=== PATIENT | female | born 1985 | race Caucasian/White ===

== ENCOUNTER → 2016-06-18 | Outpatient (CLI) | payer MEDICAID ==
[~2016-06-18] MED LIST: ACET65TA OR; AFRI0.65; AUGM875T27 PO; CEFT2ADD IV; IBUP600T OR; OCEAN NASAL SPRAY; PENI50TA PO; PENICILLIN PO; PERC5TAB PO; PERC5TAB8 OR; PERCOCET PO; PRED20TAB PO; PRENATAL VITAMIN; REGL10TA6 PO; SALINE FLUSHES IVFLUSH; TYLE325T5 PO; ZANT150T OR; ZANT150T PO; ZOVI5OIN EX; heparin IVFLUSH; no home meds
--- NOTE | 2016-06-18 10:51 | REP ---
Clinical: Abdominal pain related to section scar. Technique: Real time oneil scale and color evaluation using curved array transducer. Findings: Ultrasound examination over the surgical scar related to prior sections demonstrates an elongated avascular hypoechoic area deep to the subcutaneous tissues and possibility intramuscular which measures 4.8 x 1.1 x 1.5 cm. Impression: Avascular hypoechoic area deep to the subcutaneous tissues may represent granulation tissue/surgical scarring. If the patient remains symptomatic consider contrast enhanced CT of the abdomen and pelvis for more detailed evaluation. Signed by Allan Alcantara MD 06/18/2016 10:42 A
== END ==
LOC: M RAD 10:07
PROVIDERS: ATTEND Family Medicine
DX: R10.9 Unspecified abdominal pain (principal); R93.5 Abnormal findings on diagnostic imaging of other abdominal regions, including retroperitoneum

== ENCOUNTER 2017-10-03 14:19 | Emergency (ER) | payer OTHER, MEDICAID ==
[2017-10-03] MEDS: NS 1,000 ML IV (16:00)
[2017-10-03 16:24] LABS: BASO # 0.1 10^3/uL (0.0-0.2); BASO % 0.5 % (0.0-1.0); EOS # 0.3 10^3/uL (0.0-0.50); EOS % 2.5 % (0.0-3.0); HEMATOCRIT 37.6 % (36.0-47.0); HEMOGLOBIN 12.8 g/dl (12.0-15.5); IMMATURE GRANULOCYTE % 0.3 % (0-3.0); LYMPH # 3.9 10^3/uL (1.5-4.5); LYMPH % 30.5 % (24.0-44.0); MEAN CORPUSCULAR HEMOGLOBIN 30.7 pg (27.0-33.0); MEAN CORPUSCULAR VOLUME 90.2 fl (80.0-96.0); MONO # 1.6 10^3/uL (0.0-0.8); NEUTROPHILS % 54.2 % (36.0-66.0); RED BLOOD COUNT 4.17 10^6/uL (4.00-5.40); RED CELL DISTRIBUTION WIDTH 12.9 % (11.5-14.5); WHITE BLOOD COUNT 12.9 10^3/uL (4.0-10.0)
[2017-10-03] MEDS: fentaNYL 100 MCG/2 ML INJECTION (J3010) IV ×2 (16:26→17:37)
[2017-10-03 16:29] LABS: KETONE, URINE AUTO RFX NEGATIVE (NEGATIVE); LEUKOCYTE ESTERASE UR AUTO RFX TRACE (NEGATIVE); MUCUS, URINE RFX LARGE (NEGATIVE); NITRITE, URINE AUTO RFX NEGATIVE (NEGATIVE); RBC, URINE AUTO RFX 80 /HPF (0-3); SPECIFIC GRAVITY UR AUTO RFX 1.014 (1.002-1.035); SQUAM EPITHELIAL CELL UR AURFX 11 /HPF (0-6); WBC, URINE AUTO RFX 20 /HPF (0-3)
[2017-10-03 16:35] LABS: IMMATURE PLATELET FRACTION % 19.1 % (0.0-9.6); INR 0.96; PLATELET COUNT, AUTOMATED 64 10^3/uL (150-450); PROTHROMBIN TIME 12.9 SECONDS (12.4-14.5)
[2017-10-03 16:36] LABS: PARTIAL THROMBOPLASTIN TIME 27.8 SECONDS (26.8-37.9)
[2017-10-03 16:51] LABS: CONTROL LINE HCG INT CTR LINE PRESENT; HCG, SERUM QUALITATIVE NEGATIVE (NEGATIVE)
[2017-10-03 17:02] LABS: ANION GAP 9 MEQ/L (8-16); BLOOD UREA NITROGEN 8 MG/DL (7-18); CALCIUM LEVEL 8.4 MG/DL (8.5-10.1); CARBON DIOXIDE LEVEL 25 MEQ/L (21-32); CHLORIDE LEVEL 109 MEQ/L (98-107); CREATININE FOR GFR 0.75 MG/DL (0.55-1.30); GLOMERULAR FILTRATION RATE > 60.0 (>60); GLUCOSE, FASTING 93 MG/DL (70-100); POTASSIUM SERUM 3.4 MEQ/L (3.5-5.1); SODIUM LEVEL 143 MEQ/L (136-145)
== END 2017-10-03 18:16 | disposition home or self-care (01) ==
LOC: M ED 14:19
DX: K43.9 Ventral hernia without obstruction or gangrene (principal); N93.8 Other specified abnormal uterine and vaginal bleeding; N30.01 Acute cystitis with hematuria; D69.3 Immune thrombocytopenic purpura; K21.9 Gastro-esophageal reflux disease without esophagitis; R51 Headache; Z88.5 Allergy status to narcotic agent; Z88.1 Allergy status to other antibiotic agents
CPT/HCPCS: J3010

== ENCOUNTER → 2018-02-17 | Outpatient (REF) | payer OTHER ==
[2018-02-17 12:45] LABS: BASO # 0.1 10^3/uL (0.0-0.2); BASO % 0.6 % (0.0-1.0); EOS # 0.4 10^3/uL (0.0-0.50); EOS % 3.6 % (0.0-3.0); HEMATOCRIT 41.9 % (36.0-47.0); HEMOGLOBIN 13.9 g/dl (12.0-15.5); IMMATURE GRANULOCYTE % 0.6 % (0-3.0); LYMPH # 4.2 10^3/uL (1.5-4.5); LYMPH % 35.4 % (24.0-44.0); MEAN CORPUSCULAR HEMOGLOBIN 30.6 pg (27.0-33.0); MEAN CORPUSCULAR HGB CONC 33.2 g/dl (32.0-36.5); MEAN CORPUSCULAR VOLUME 92.3 fl (80.0-96.0); MONO # 1.3 10^3/uL (0.0-0.8); MONO % 11.3 % (0.0-5.0); NEUTROPHILS # 5.7 10^3/uL (1.8-7.7); NEUTROPHILS % 48.5 % (36.0-66.0); PLATELET COUNT, AUTOMATED 126 10^3/uL (150-450); RED BLOOD COUNT 4.54 10^6/uL (4.00-5.40); RED CELL DISTRIBUTION WIDTH 12.8 % (11.5-14.5); WHITE BLOOD COUNT 11.7 10^3/uL (4.0-10.0)
[2018-02-17 16:09] LABS: ALBUMIN 3.8 GM/DL (3.2-5.2); ALBUMIN/GLOBULIN RATIO 1.12 (1.00-1.93); ALKALINE PHOSPHATASE 49 U/L (45-117); ALT/SGPT 21 U/L (12-78); ANION GAP 9 MEQ/L (8-16); AST/SGOT 18 U/L (7-37); BILIRUBIN,TOTAL 0.4 MG/DL (0.2-1.0); BLOOD UREA NITROGEN 10 MG/DL (7-18); CALCIUM LEVEL 8.5 MG/DL (8.5-10.1); CARBON DIOXIDE LEVEL 26 MEQ/L (21-32); CHLORIDE LEVEL 107 MEQ/L (98-107); CREATININE FOR GFR 0.79 MG/DL (0.55-1.30); FREE T4 0.89 NG/DL (0.76-1.46); GLOMERULAR FILTRATION RATE > 60.0 (>60); GLUCOSE, FASTING 85 MG/DL (70-100); POTASSIUM SERUM 3.9 MEQ/L (3.5-5.1); SODIUM LEVEL 142 MEQ/L (136-145); TOTAL PROTEIN 7.2 GM/DL (6.4-8.2)
== END ==
LOC: M SFHCADAM 10:46
DX: D69.3 Immune thrombocytopenic purpura (principal); R63.5 Abnormal weight gain

== ENCOUNTER 2018-05-23 12:31 | Observation (INO) | payer OTHER ==
[~2018-05-23] VITALS: Ht 175.3 cm; Wt 92.3 kg
[2018-05-23] VITALS (7 sets, daily range): BP systolic 115–143; BP diastolic 59–82
[~2018-05-23 12:31] MED LIST changes: +MACR100C43 PO; +OXYC1TAB23 PO; +PERC5TAB12 PO; +ZYRTTAB8 PO
[2018-05-23 13:16] LABS: HEMATOCRIT 44.9 % (36.0-47.0); HEMOGLOBIN 15.3 g/dl (12.0-15.5); MEAN CORPUSCULAR HGB CONC 34.1 g/dl (32.0-36.5); MEAN CORPUSCULAR VOLUME 90.9 fl (80.0-96.0); RED BLOOD COUNT 4.94 10^6/uL (4.00-5.40); WHITE BLOOD COUNT 13.1 10^3/uL (4.0-10.0)
[2018-05-23 13:29] LABS: INR 0.91; PARTIAL THROMBOPLASTIN TIME 29.6 SECONDS (25.4-37.6); PROTHROMBIN TIME 12.3 SECONDS (12.1-14.4)
[2018-05-23 13:38] LABS: ALBUMIN 4.2 GM/DL (3.2-5.2); ALT/SGPT 23 U/L (12-78); BILIRUBIN,DIRECT < 0.1 MG/DL (0.0-0.2); BILIRUBIN,TOTAL 0.4 MG/DL (0.2-1.0); BLOOD UREA NITROGEN 9 MG/DL (7-18); CARBON DIOXIDE LEVEL 26 MEQ/L (21-32); CHLORIDE LEVEL 106 MEQ/L (98-107); GLOMERULAR FILTRATION RATE > 60.0 (>60); GLUCOSE, FASTING 88 MG/DL (70-100); POTASSIUM SERUM 3.8 MEQ/L (3.5-5.1); SODIUM LEVEL 141 MEQ/L (136-145); TOTAL PROTEIN 8.1 GM/DL (6.4-8.2)
[2018-05-23 13:51] LABS: PLATELET COUNT, AUTOMATED 6 10^3/uL (150-450)
[2018-05-23] MEDS ORDERED: ACETAMINOPHEN TAB 650MG DOSE (2X325MG) PO ONE ×2 (16:15→17:45)
[2018-05-23] MEDS ORDERED: diphenhydrAMINE INJ 50MG/ML VIAL (J1200) IV ONE (16:15)
[2018-05-23] MEDS ORDERED: [UNRECOGNIZED DRUG - OTHER] IV SCH ×2 (16:30→20:00)
[2018-05-23] MEDS ORDERED: IMMUNE GLOBULIN IV SCH ×3 (16:30→20:00)
[2018-05-23] MEDS ORDERED: DILUENT IV SCH (17:00)
--- NOTE | 2018-05-23 17:16 | HPE ---
DATE OF ADMISSION: 05/23/2018 This is a 32-year-old female past medical history of idiopathic thrombocytopenic purpura (ITP) who presents to the emergency room due to abnormal laboratories found at Dr. Baldwin's office, her trust and estates attorney. When the patient came here, complete blood count (CBC) was noted to be at 6000. The patient claims that she normally runs between 10 and 15 thousand. She did have a recent upper respiratory infection and she did say that when this happens her platelets do drop a bit. She does not report any evidence of overt bleeding and she has not sustained any trauma and does not note any petechiae. She will be admitted for intravenous immunoglobulin (IVIG) therapy. PAST MEDICAL HISTORY: Idiopathic thrombocytopenic purpura (ITP). PAST SURGICAL HISTORY: She has no past surgical history. ALLERGIES: She has drug allergies to MORPHINE and VANCOMYCIN. FAMILY HISTORY: Noncontributory. SOCIAL HISTORY: The patient denies tobacco, alcohol, or illicit drugs. MEDICATIONS: She takes at home are as follows: Zyrtec-D one tablet orally daily. REVIEW OF SYSTEMS: Negative for all 10 major systems except for what is mentioned in the history of present illness (HPI). VITAL SIGNS: Blood pressure is 138/89, heart rate 77 and regular, respiratory rate 18, temperature 97.1, oxygen saturation 99% on room air. Head is normocephalic, atraumatic. NECK: Supple with no jugular venous distention (JVD). LUNGS: Clear to auscultation. S1, S2 audible. No murmurs appreciated. ABDOMEN: Soft. Positive bowel sounds. No pedal edema. SKIN: Intact. No petechiae noted. NEUROLOGIC: The patient is awake, alert, and oriented times three. LABORATORY DATA: WBC is 13.1, hemoglobin is 15.3, hematocrit 44.9, platelets are 6000. Sodium 141, potassium 3.8, chloride 106, CO2 26, BUN is 9, creatinine 0.8. PT is 12.3, INR 0.91, PTT 29.6. IMPRESSION: Idiopathic thrombocytopenic purpura (ITP). PLAN: The patient will be admitted to advanced medical/surgical floor. We will start the patient on intravenous immunoglobulin (IVIG) therapy times two doses as per Dr. Baldwin, trust and estates attorney. We will follow platelet counts in the morning and continue her care on the medical/surgical floor.
[2018-05-23] MEDS ORDERED: ZYRT10CA5 PO (17:17)
[2018-05-23] MEDS ORDERED: diphenhydrAMINE INJ 50MG/ML VIAL (J1200) IM ONE (17:45)
[2018-05-23] MEDS ORDERED: diphenhydrAMINE 25 MG CAP PO ONE (20:15)
[2018-05-23] MEDS ORDERED: [UNRECOGNIZED DRUG - OTHER] IV ONE (21:00)
[2018-05-23] MEDS ORDERED: IMMUNE GLOBULIN IV ONE (21:00)
[2018-05-24] VITALS (28 sets, daily range): BP systolic 105–144; BP diastolic 52–81
[2018-05-24] MEDS ORDERED: PERCOCET 5MG/325MG TAB PO ONE ×3 (03:00→12:30)
[2018-05-24] MEDS ORDERED: IMMUNE GLOBULIN IV SCH (09:45)
[2018-05-24] MEDS ORDERED: DILUENT IV SCH (09:45)
[2018-05-24] MEDS: ACETAMINOPHEN TAB 650MG DOSE (2X325MG) PO PRN ×2 (11:07→22:13)
--- NOTE | 2018-05-24 12:04 | IPNPDOC ---
Subjective Date Seen The patient was seen on 05/24/18. Subjective Chief Complaint/HPI Patient is examined at bedside. She reported mild headache, but states that she get the headache everytime she gets IVIG. Reported no fever, chills, nausea, vomiting, SOB, chest pain, dizziness, or lightheadedness. General: Reports: Other Symptoms (No lightheadedness or dizziness); Denies: Chills Constitutional: Denies: Chills, Fever ENT: Reports: Head Aches (Mild) Skin: Reports: Other (scar in abdomen) Pulmonary: Denies: Dyspnea Cardiovascular: Denies: Chest Pain, Palpitations Gastrointestinal: Denies: Nausea, Vomiting Hematologic: Denies: Bruising, Bleeding Excessively, Petecchia Neurological: Reports: Other Symptoms; Denies: Change in speech, Confusion Psych: Denies: Memory Issues Objective Physical Examination General Exam: Positive: Alert, Cooperative, No Acute Distress Eye Exam: Positive: Conjunctiva & lids normal; Negative: Sclera icteric, Ptosis ENT Exam: Positive: Atraumatic, Mucous membr. moist/pink Neck Exam: Positive: Supple Chest Exam: Positive: Clear to auscultation, Normal air movement; Negative: Rales, Rhonchi, Wheezing Heart Exam: Positive: Rate Normal, Regular Rhythm, Normal S1, Normal S2; Negative: Murmurs Abdomen Exam: Positive: Normal bowel sounds, Soft, Other (vertical keloid scar about 5-6cm longX 0.5cm wide in midline hypogastric region); Negative: Tenderness Extremity Exam: Negative: Edema, Tenderness, Swelling Skin Exam: Positive: Nl turgor and temperature Neuro Exam: Positive: Normal Speech Psych Exam: Positive: Mental status NL, Mood NL, Memory Intact, Oriented x 3; Negative: Anxiety Assessment /Plan Problems (1) ITP (idiopathic thrombocytopenic purpura) Status: Acute Problem Text: Platelet at 6,000 found on surgical clearance visit at Dr. Baldwin's office. S/p IVIGX1. Second IVIG scheduled for today at 5 PM. Pt reported several prior episodes>10 times requiring IVIG and that previously steroid did not work for her thrombocytopenia. No petechia/ecchymosis noted. Pt asymptomatic besides minor headache; tylenol PRN. CBC ordered but still pending. Continue to trend CBC daily. Vital signs as scheduled. Cont to monitor the pt. Plan/VTE VTE Prophylaxis Ordered?: Yes (SCD) Plan Diet: Continue Current Activity: Continue Current Anticipated Discharge: Home VS, I&O, 24H, Laura Vital Signs/I&O Vital Signs Date Time Temp Pulse Resp B/P (MAP) Pulse Ox O2 Delivery O2 Flow Rate FiO2 05/24/18 08:06 18 05/24/18 06:52 97.6 67 119/59 (79) 98 Room Air I&O- Last 24 Hours up to 6 AM 05/24/18 06:00 Intake Total 590 ml Output Total 400 ml Balance 190 ml Laboratory Data 24H LABS Laboratory Tests 2 05/23/18 12:55: Nucleated Red Blood Cells % (auto) 0.0, Immature Platelet Fraction 28.7H, Prothrombin Time 12.3, Prothromb Time International Ratio 0.91, Activated Partial Thromboplast Time 29.6, Anion Gap 9, Glomerular Filtration Rate > 60.0, Calcium Level 9.0, Aspartate Amino Transf (AST/SGOT) 20, Alanine Sanchez otransferase (ALT/SGPT) 23, Alkaline Phosphatase 63, Total Bilirubin 0.4, Direct Bilirubin < 0.1, Total Protein 8.1, Albumin 4.2, Albumin/Globulin Ratio 1.08 CBC/BMP Laboratory Tests 05/23/18 12:55 Red Blood Count 4.94, Mean Corpuscular Volume 90.9, Mean Corpuscular Hemoglobin 31.0, Mean Corpuscular Hemoglobin Concent 34.1, Red Cell Distribution Width 12.6 GIOVANA OCONNELL DO May 24, 2018 12:04
[2018-05-24] MEDS: PERCOCET 5MG/325MG TAB PO PRN ×2 (15:15→21:24)
[2018-05-24] MEDS: ONDANSETRON 4MG/2ML VIAL (J2405) IV PRN (15:15)
[2018-05-24] MEDS ORDERED: ACETAMINOPHEN TAB 650MG DOSE (2X325MG) PO ONE (17:00)
[2018-05-24] MEDS ORDERED: [UNRECOGNIZED DRUG - OTHER] IV ONE (17:00)
[2018-05-24] MEDS ORDERED: diphenhydrAMINE 25 MG CAP PO ONE (17:00)
[2018-05-24] MEDS ORDERED: IMMUNE GLOBULIN IV ONE (17:00)
[2018-05-25] VITALS (8 sets, daily range): BP systolic 113–144; BP diastolic 53–71
[2018-05-25] MEDS: PERCOCET 5MG/325MG TAB PO PRN (03:17)
[2018-05-25] MEDS: ACETAMINOPHEN TAB 650MG DOSE (2X325MG) PO PRN (04:38)
[2018-05-25] MEDS: ONDANSETRON 4MG/2ML VIAL (J2405) IV PRN (04:38)
[2018-05-25] MEDS ORDERED: diphenhydrAMINE 50 MG CAP PO ONE (05:30)
[2018-05-25] MEDS ORDERED: HYDROMORPHONE HCL 0.5 MG/ 0.5 ML SYRINGE (J1170 PER 1) IV PRN (06:00)
[2018-05-25] MEDS: HYDROMORPHONE HCL 0.5 MG/ 0.5 ML SYRINGE (J1170 PER 1) IV PRN ×2 (06:07→09:52)
[2018-05-25 08:03] LABS: HEMATOCRIT 39.4 % (36.0-47.0); HEMOGLOBIN 13.3 g/dl (12.0-15.5); MEAN CORPUSCULAR HEMOGLOBIN 30.7 pg (27.0-33.0); MEAN CORPUSCULAR HGB CONC 33.8 g/dl (32.0-36.5); RED BLOOD COUNT 4.33 10^6/uL (4.00-5.40); WHITE BLOOD COUNT 12.9 10^3/uL (4.0-10.0)
[2018-05-25 08:07] LABS: PLATELET COUNT, AUTOMATED 38 10^3/uL (150-450)
[2018-05-25 08:31] LABS: BLOOD UREA NITROGEN 12 MG/DL (7-18); CALCIUM LEVEL 7.9 MG/DL (8.5-10.1); CARBON DIOXIDE LEVEL 25 MEQ/L (21-32); CHLORIDE LEVEL 104 MEQ/L (98-107); CREATININE FOR GFR 0.75 MG/DL (0.55-1.30); GLOMERULAR FILTRATION RATE > 60.0 (>60); GLUCOSE, FASTING 95 MG/DL (70-100); POTASSIUM SERUM 3.8 MEQ/L (3.5-5.1); SODIUM LEVEL 135 MEQ/L (136-145)
[2018-05-25] MEDS ORDERED: TOPIRAMATE (TopAMAX) 25 MG TAB PO SCH (09:00)
[2018-05-25] MEDS ORDERED: INFLUENZA QUADRIVALENT PF VACCINE 0.5ML SYRINGE (90686) IM ONE (09:00)
[2018-05-25] MEDS ORDERED: DILA2TAB6 PO (09:55)
--- NOTE | 2018-05-25 11:45 | DS.PDOC ---
Discharge Summary General Date of Admission May 23, 2018 at 16:54 Date of Discharge 05/25/18 Attending Physician: Onofre Cordoba MD Discharge Summary PROCEDURES PERFORMED DURING STAY: [None]. ADMITTING DIAGNOSES: 1. ITP DISCHARGE DIAGNOSES: 1. ITP 2. Headache 3. 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 HISTORY OF PRESENT ILLNESS: Patient is a 32 yo female with PMH of ITP presented at [facility] for thrombocytopenia with platelet count at 6000 while baseline platelet between 10,000-15,000. It was noted that she had thrombocytopenia when she was at Dr. Baldwin's office for surgery clearance. Pt denied any bleedi ng/ecchymosis/petechiae. HOSPITAL COURSE: Pt received IVIGX2. She reported bilateral tight/pressure headache after IVIG, and stated that she gets everytime she received IVIG. No neuro deficit or was observed; pt A&OX3 and denied fall/hitting her head. Pt received Percocet and IV dilaudid for pain control. Patient felt the headache is migraine headache.Topiramate was also ordered. She refused her CBC several times during her hospital stay and stated that she will need to receive two IVIG anyway. Her platelet count on 05/25/18 increased to 38,000. DISCHARGE MEDICATIONS: Please see below. ALLERGIES: Please see below. PHYSICAL EXAMINATION ON DISCHARGE: VITAL SIGNS: Please see below. GENERAL: A&OX3, not in acute distress HEENT: Normocephalic, atraumatic, EOMI, neck supple, conjunctiva and lids normal NECK: supple CARDIOVASCULAR EXAMINATION: RRR, no murmur, S1 and S2 normal RESPIRATORY EXAMINATION: Normal air entery. CTA b/l. No rales/ wheezing/rhonchi ABDOMINAL EXAMINATION: Keloid scare in midline hypogastric area about 5cm long 0.5cm wide. Bowel sound+4 in all 4 quadrants EXTREMITIES: +5/5 in all extremities. Radial pulse equal b/l SKIN: No petechiae/ecchymosis noted NEUROLOGICAL EXAMINATION: CN3-12 grossly normal PSYCHIATRIC EXAMINATION: Appropriate to situation LABORATORY DATA: Please see below. IMAGING: None PROGNOSIS: Good ACTIVITY: [As tolerated]. DIET: As tolerated DISCHARGE PLAN AND INSTRUCTIONS: Pt will follow up with PCP in 7 days. Patient will follow up with Dr. Baldwin heme/onco in 10-14 days. Dilaudid PO 2mg Q6hP Pain for 3 days only. DISPOSITION: 01 Home, Self-Care. ITEMS TO FOLLOWUP ON ON OUTPATIENT: 1. ITP 2. Headache DISCHARGE CONDITION: [Stable]. TIME SPENT ON DISCHARGE: Greater than 10 minutes. Vital Signs/I&Os Vital Signs Date Time Temp Pulse Resp B/P (MAP) Pulse Ox O2 Delivery O2 Flow Rate FiO2 05/25/18 10:02 97.6 62 18 122/59 97 05/24/18 06:52 Room Air I&O- Last 24 Hours up to 6 AM 05/25/18 05:59 Intake Total 2020 ml Output Total 0 ml Balance 2020 ml Laboratory Data Labs 24H Laboratory Tests 2 05/25/18 07:17: Nucleated Red Blood Cells % (auto) 0.0, Immature Platelet Fraction 22.0H, Anion Gap 6L, Glomerular Filtration Rate > 60.0, Blood Urea Nitrogen 12, Creatinine 0.75, Sodium Level 135L, Potassium Level 3.8, Chloride Level 104, Carbon Dioxide Level 25, Calcium Level 7.9L CBC/BMP Laboratory Tests 05/25/18 07:17 Red Blood Count 4.33, Mean Corpuscular Volume 91.0, Mean Corpuscular Hemoglobin 30.7, Mean Corpuscular Hemoglobin Concent 33.8, Red Cell Distribution Width 12.4, Calcium Level 7.9 L Discharge Medications Scheduled Cetirizine HCl (Zyrtec Allergy) 10 Mg Tab, 10 MG PO DAILY, (Reported) Scheduled PRN Hydromorphone HCl (Dilaudid) 2 Mg Tab, 2 MG PO QIDP PRN for pain Allergies Coded Allergies: Morphine (Verified Allergy, Severe, RASH, SWELLING, ITCHING, 07/28/12) Vancomycin (Verified Adverse Reaction, Mild, FLUSHED FACE,NECK,CHEST & ITCHING, 07/28/12) GIOVANA OCONNELL DO May 25, 2018 11:45
== END 2018-05-25 11:05 | disposition home or self-care (01) ==
LOC: M ED 12:31 → M ED INP 16:54 → M MS4PR 18:20 → M PED 05-24 15:25
PROVIDERS: ADMIT Internal Medicine; ATTEND Family Medicine
DX: D69.3 Immune thrombocytopenic purpura (principal); R51 Headache; L91.0 Hypertrophic scar
CPT/HCPCS: 36415; 80048; 80076; 85027; 85049; 85055; 85610; 85730; 96365; 96366; 96375; 96376; 99284; J1170; J1459; J2405

== ENCOUNTER → 2018-07-05 | Outpatient (CLI) | payer OTHER ==
[~2018-07-05] MED LIST changes: +DILA2TAB6 PO; +GASTROGRAFIN SOLUTION 30ML (Q9963) As Ordered ONE; +ISOVUE-370 76% 100ML VIAL (Q9967) As Ordered ONE; +ZYRT10CA5 PO
--- NOTE | 2018-07-05 19:49 | REP ---
Clinical: Lower abdominal pain. Technique: Axial contrast enhanced images from the lung bases to the pubic symphysis using oral (per protocol) and 100 ml Isovue 370 intravenous contrast material with coronal and sagittal re-formations. Comparison: 07/13/2012. Findings: Lung bases are clear. Visualized heart and pericardium normal. Liver, pancreas, gallbladder, bilateral adrenal glands and kidneys are normal. 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 The enteric system is without obstruction or acute inflammatory process. Normal terminal ileum and appendix are identified in the right lower quadrant. Pelvis demonstrates normal bladder and age-appropriate uterus/adnexa. No pelvic fluid or ascites. No free air. No adenopathy. Abdominal aorta and vasculature without aneurysm or dissection. Small fat containing periumbilical hernia measures approximately 2.2 cm. Musculoskeletal structures are intact without focal osseous abnormality. Impression: 1. Evidence for prior splenectomy. 2. Small fat containing periumbilical hernia approximately 2.2 cm maximal diameter. 3. No further acute abdominopelvic pathology appreciated. Electronically Signed by Allan Alcantara MD 07/05/2018 07:41 P
== END ==
LOC: M RAD 08:48
PROVIDERS: ATTEND Plastic Surgery Surgery of the Hand
DX: K42.9 Umbilical hernia without obstruction or gangrene (principal); Z90.81 Acquired absence of spleen; R10.30 Lower abdominal pain, unspecified
CPT/HCPCS: 74177; Q9963; Q9967